=== PATIENT | female | born 1960 | race African-American/Black ===

== ENCOUNTER 2018-03-05 11:36 | Emergency (ER) | payer OTHER ==
[~2018-03-05] VITALS: Ht 160 cm; Wt 95.5 kg
[~2018-03-05 11:36] MED LIST: AMOXICILLIN500 MG PO; CATAPRES0.2 MG PO; CIPROFLOXACN500 MG PO; CYCLOBENZAPR10 MG PO; DOXAZOSIN1 MG PO; HYDROCHLORO25 MG/TAB PO; HYDROXYZ HCL25 MG OR; LASIX 20 MG TAB20 MG PO; LISINOP/HCTZ1 TA1 PO; LORTAB5 PO; MEDDOSEPAK OR; NO MEDS; NORVASC5 MG OR; PRINZIDE1 TA1 OR; QUINAPRIL20 MG PO; ROBITUSSIN AC10 ML PO; SULFACET SOD10 % OS; TRIAMCINOLON0.025 % EX; ULTRAM50 MG OR; ZOFRAN ODT4 MG OR
[2018-03-05] MEDS ORDERED: ASPERCREME LIDOCA41 TOP ×2 (12:13→13:01)
[2018-03-05] MEDS ORDERED: MOTRIN400 MG PO ×2 (12:13→13:01)
[2018-03-05 13:00] VITALS: BP 150/80
== END 2018-03-05 13:00 | disposition home or self-care (01) | DRG 563 ==
LOC: ED 11:36
DX: S46.911A Strain of unspecified muscle, fascia and tendon at shoulder and upper arm level, right arm, initial encounter (principal); M25.511 Pain in right shoulder; M54.42 Lumbago with sciatica, left side; M54.41 Lumbago with sciatica, right side; W01.0XXA Fall on same level from slipping, tripping and stumbling without subsequent striking against object, initial encounter; Y92.009 Unspecified place in unspecified non-institutional (private) residence as the place of occurrence of the external cause

== ENCOUNTER 2018-05-13 20:34 | Observation (INO) | payer OTHER ==
[~2018-05-13] VITALS: Ht 160 cm; Wt 88.5 kg
[~2018-05-13 20:34] MED LIST changes: +ASPERCREME LIDOCA41 TOP; +MOTRIN400 MG PO
--- NOTE | 2018-05-13 20:42 | NUR ---
PT. TO ROOM 6 WITH C/O CP THAT STARTED LAST EVENING. PT. STATES HER CP IS A 10 ON A SCALE OF 1-10. SKIN WARM AND DRY TO TOUCH, COLOR WNL, RESP. EVEN AND UNLABORED.
--- NOTE | 2018-05-13 21:30 | NUR ---
IV PAIN MED GIVEN PER MD ORDER.
--- NOTE | 2018-05-13 21:35 | NUR ---
PO ASA GIVEN PER MD ORDER.
--- NOTE | 2018-05-13 21:36 | NUR ---
SI NITROGLYCERIN AND NITROGLYCERIN OINT. GIVEN PER MD ORDER.
--- NOTE | 2018-05-13 21:50 | NUR ---
PT. STATES HER CP IS NOW DECREASED TO A 2 ON A SCAL OF 1-10.
[2018-05-13 22:03] LABS: HEMATOCRIT 49.9 % (37.0-47.0); IMMATURE GRANULOCYTES 0.4 % (0.0-1.0); MEAN CELL VOLUME 88.5 fL CALC (80.0-100.0); MEAN CORPUSCULAR HGB 29.6 pG CALC (26.0-32.0); MEAN CORPUSCULAR HGB CONC 33.5 g/L CALC (32.0-36.0); NEUT# 7.1 thou/uL (2.00-7.15); RED BLOOD COUNT 5.64 mill/uL (4.20-5.60); RED CELL DISTRI WIDTH 13.8 % (11.5-15.5)
[2018-05-13 22:05] LABS: ALBUMIN 4.2 g/dL (3.2-5.0); ALKALINE PHOSPHATASE 93 u/l (38-126); AMYLASE 84 u/l (30-110); ANION GAP 13 (6-22 (CALC)); BILIRUBIN, TOTAL 0.8 mg/dL (0.0-1.4); BUN 13 mg/dL (7-17); BUN/CREATININE RATIO 14 (12-20 (CALC)); CARBON DIOXIDE 30 mmol/l (22-30); CHLORIDE 99 mmol/l (95-108); CREATININE 0.9 mg/dL (0.5-1.0); GFR > 60 ML/MIN (>=60 (CALC)); GFR FOR AFR.AMER. > 60 ML/MIN (>=60 (CALC)); LIPASE 41 u/l (23-300); POTASSIUM 4.5 mmol/l (3.5-5.1); SGOT/AST 27 u/l (14-36); SGPT/ALT 32 u/l (9-52); TOTAL PROTEIN 8.4 g/dL (6.3-8.2)
[2018-05-13 22:11] LABS: ACT PARTIAL THROMBO TIME 29.1 SECONDS (20.0-32.5); PROTHROMBIN TIME 11.1 SECONDS (9.0-12.5)
[2018-05-13 22:13] LABS: HEMOGLOBIN 16.7 g/dl (12.0-16.0)
[2018-05-13 22:17] LABS: MYOGLOBIN 26 ng/mL (0 - 62)
[2018-05-13 22:19] LABS: SODIUM 137 mmol/l (137-146)
--- NOTE | 2018-05-13 22:47 | NUR ---
PO CATAPRESS GIVEN PER MD ORDER.
--- NOTE | 2018-05-13 23:35 | NUR ---
AMBULATING TO BR GAIT SLOW AND STEADY.
[2018-05-14] VITALS (8 sets, daily range): BP systolic 122–167; BP diastolic 75–96
--- NOTE | 2018-05-14 00:01 | NUR ---
Admission Note Report Given to: PALMER EPPS Transported by: Wheelchair X Stretcher Transported with: X Nurse Transporter X Patent IV O2 X Heavy Equipment Rental Manager
--- NOTE | 2018-05-14 00:10 | NUR ---
PT. TRANSFERED TO DE FLOOR VIA STRETCHER, NO C/O.
[2018-05-14 00:11] LABS: URINE BILIRUBIN - DIPSTICK NEGATIVE (NEGATIVE); URINE BLOOD DIPSTICK SMALL (NEGATIVE); URINE COLOR YELLOW; URINE GLUCOSE - DIPSTICK NEGATIVE (NEGATIVE); URINE KETONE NEGATIVE (NEGATIVE); URINE LEUK ESTERASE TRACE (NEGATIVE); URINE NITRITE - DIPSTICK NEGATIVE (Negative); URINE PH 5.5 (4.5-8.0); URINE PROTEIN - DIPSTICK NEGATIVE (NEG-TRACE); URINE SPECIFIC GRAVITY <=1.005; URINE UROBILINOGEN - DIPSTICK 0.2 E.U./dL (0.2)
[2018-05-14 00:17] LABS: COCAINE POSITIVE (NEGATIVE); METHADONE NEGATIVE (NEGATIVE); TETRAHYDROCANNABIONOL NEGATIVE (NEGATIVE)
[2018-05-14 00:18] LABS: BARBITURATES NEGATIVE (NEGATIVE); OXCYCODONE NEGATIVE (NEGATIVE); TRICYLIC ANTIDEPRESSANTS NEGATIVE (NEGATIVE); URINE CLARITY CLEAR
[2018-05-14 00:22] LABS: URINE SQUAMOUS EPITHELIAL CELL FEW EPI/hpf (0-FEW)
--- NOTE | 2018-05-14 00:25 | NUR ---
PT ARRIVED TO FLOOR WITH ER NURSE. PT AMBULATED TO SCALE, THEN TO BED. VITAL SIGNS OBTAINED BY ALLERGIST IMMUNOLOGIST. PT ORIENTED TO ROOM AND CALL LIGHT SYSTEM. PT DENIES PAIN. RESP EVEN AND UNLABORED. TELE IN PLACE. LUNGS CLEAR BILAT. ABD SOFT, ACTIVE BOWEL SOUNDS. PT REPORTS LAST BM WAS THIS MORNING. PEDAL PULSES PALPATED BILAT. IV LAC PATENT; FLUSHED WITHOUT DIFFICULTY. SAFETY PREACUTIONS REINFORCED. FREQUENT ROUNDS MADE, CALL LIGHT WITHIN REACH.
--- NOTE | 2018-05-14 04:30 | NUR ---
ASSESSMENT UNCHANGED; RESP EVEN AND UNLABORED. TELE IN PLACE. CALL LIGHT WITHIH REACH.
--- NOTE | 2018-05-14 05:56 | NUR ---
SPOKE WITH DR CLAROS ON TELEPHONE FOR ADMISSION ORDERS, NEW ORDERS RECIEVED AT THIS TIME. CONSULT WITH DR CHACON FOR FARM PLANNER. 2 VIEW ECHO THIS AM. CARDIAC DIET. MORPHINE 2MG Q2 PRN PAIN. ASPIRIN 81 MG PO DAILY. QUINAPRIL HCL 20 MG PO DAILY, LIDOCAINE 4% PAD 1 PATCH TOP BID #20 PAD FOR MODERATE PAIN. APPLY O2 2L. RBVO.
--- NOTE | 2018-05-14 06:25 | NUR ---
SPOKE TO DR CLAROS IN REGARDS TO THE CARDIOLOGY CONSULT DR CHACON NOT HAVING PRIVILEGES AT THIS HOSPITAL. ALSO NOTIFIED THAT ECHO WILL NOT BE AVAILABLE UNTIL WEDNESDAY. NO OTHER ORDERS RECIEVED AT THIS TIME.
--- NOTE | 2018-05-14 06:50 | NUR ---
PT UP TO BATHROOM, PT HAD SMALL BM. BROWN IN COLOR. PT ASSISTED BACK TO BEDSIDE CHAIR. RESP EVEN AND UNLABORED WITH O2 IN PLACE. TELE IN PLACE. IV PATENT, CALL LIGHT WITHIN REACH.
--- NOTE | 2018-05-14 07:38 | NUR ---
SHIFT CHANGE REPORT FROM RADHA CHAKRABORTY AWAKE ALERT AND ORIENTED, C/O CHEST PAIN AT @ 9/10 THIS TIME, TELE MONITOR IN PLACE, WILL CONTINUE TO MONITOR AND ADDRESS CONCERNS, CALL TORRES IN REACH.
--- NOTE | 2018-05-14 11:26 | NUR ---
DR CLAROS AND JUAN PABLO HERE, ROUNDED WITH AND DISCUSSED PLAN OF CARE, PT STATED UNDRESTANDING, PAIN CONCERNS ADDRESSED, CALL TORRES IN REACH.
--- NOTE | 2018-05-14 15:44 | NUR ---
RELAXING IN BED, ALL NEEDS MET CALL TORRES IN REACH.
--- NOTE | 2018-05-14 19:30 | NUR ---
PT RESTING IN BED WATCHING TV. RESP EVEN AND UNLABORED WITH O2 IN PLACE. PT DENIES PAIN OR DISCOMFORT. TELE ON. LUNGS CLEAR, DIMINISHED IN BASES. ABD SOFT, ACTIVE BOWEL SOUNDS. PEDAL PULSES PALPATED BILAT. IV LAC PATENT; FLUSHED WITHOUT DIFFICULTY. SAFETY PRECAUTIONS REINFORCED. FREQUENT ROUNDS MADE. CALL LIGHT WITHIN REACH.
[2018-05-15] VITALS (8 sets, daily range): BP systolic 142–186; BP diastolic 79–98
--- NOTE | 2018-05-15 | NUR ---
RESP EVEN AND UNLABORED. PT ASLEEP WITH EYES CLOSED. TELE IN PLACE. NO DISTRESS NOTED. CALL LIGHT WITHIN REACH.
--- NOTE | 2018-05-15 04:05 | NUR ---
ASSESSMENT UNCHANGED; PT WOKE FOR MORNING LAB WORK. RESP EVEN AND UNLABORED. PT DENIES PAIN. TELE IN PLACE. CALL LIGHT WITHIN REACH.
[2018-05-15 05:16] LABS: HEMATOCRIT 44.9 % (37.0-47.0); IMMATURE GRANULOCYTES 0.4 % (0.0-1.0); MEAN CELL VOLUME 90.7 fL CALC (80.0-100.0); MEAN CORPUSCULAR HGB 29.3 pG CALC (26.0-32.0); MEAN CORPUSCULAR HGB CONC 32.3 g/L CALC (32.0-36.0); NEUT# 6.69 thou/uL (2.00-7.15); RED BLOOD COUNT 4.95 mill/uL (4.20-5.60); RED CELL DISTRI WIDTH 13.8 % (11.5-15.5)
[2018-05-15 05:22] LABS: ANION GAP 12 (6-22 (CALC)); BUN 15 mg/dL (7-17); BUN/CREATININE RATIO 20 (12-20 (CALC)); CALCULATED LDLCHOLESTEROL 117 mg/dL (62-129 (CALC)); CARBON DIOXIDE 27 mmol/l (22-30); CHLORIDE 103 mmol/l (95-108); CHOLESTEROL HDL RATIO 3.4 (<4.4 (CALC)); CREATININE 0.7 mg/dL (0.5-1.0); GFR > 60 ML/MIN (>=60 (CALC)); GFR FOR AFR.AMER. > 60 ML/MIN (>=60 (CALC)); HDL CHOLESTEROL 56 mg/dL (>=40); POTASSIUM 4.4 mmol/l (3.5-5.1); SODIUM 138 mmol/l (137-146); TOTAL CHOLESTEROL 188 mg/dl (0-199); TOTAL TRIGLYCERIDES 75 mg/dl (30-149); VLDL CHOLESTROL 15 mg/dl (2-49 (CALC))
[2018-05-15 05:25] LABS: HEMOGLOBIN 14.5 g/dl (12.0-16.0)
--- NOTE | 2018-05-15 07:00 | NUR ---
REPORT RECEIVED BY KAYLA. PT IS SLEEPING WITH NO S/S OF DISTRESS NOTED. CALL LIGHT IN REACH.
--- NOTE | 2018-05-15 07:50 | NUR ---
MEDICATED PT WITH TORADOL FOR PAIN IN HER CHEST SEE EMAR. ASSESSMENT DONE . LUNG SOUND CLEAR/DIMINISHED. O2 AT 2L/MIN VIA NC. #20 LAC THAT APPEARS HEALTHY. SAFETY PRECAUTIONS REINFORCED AND CALL LIGHT IN REACH.
--- NOTE | 2018-05-15 08:15 | NUR ---
PT IS SITTING IN THE SIDE OF THE BED. PT STATED THAT THE PAIN MEDICATION HELPED WITH HER PAIN. PT DENIES ANY OTHER NEEDS AT THIS TIME. CALL LIGHT IN REACH.
--- NOTE | 2018-05-15 12:00 | NUR ---
PT EATING HER LUNCH WITH NO S/S OF DISTRESS NOTED. PT DENIES NEEDS AT THIS TIME CALL LIGHT IN REACH.
--- NOTE | 2018-05-15 16:00 | NUR ---
PT IS RESTING IN BED WITH NO S/S OF DISTRESS NOTED. PT DENIES PAIN . CALL LIGHT IN REACH.
--- NOTE | 2018-05-15 19:20 | NUR ---
REPORT RECIEVED, PT RESTING IN BED WITH EYES CLOSED. RESP EVEN AND UNLABORED. NO DISTRESS NOTED. TELE ON. FREQUENT ROUNDS MADE, CALL LIGHT WITHIN REACH.
--- NOTE | 2018-05-15 20:00 | NUR ---
PT WOKE FOR ASSESSMENT, RESP EVEN AND UNLABORED. TELE IN PLACE. LUNGS CLEAR, DIMINISHED IN BASES. ABD SOFT, ACTIVE BOWEL SOUNDS. PEDAL PULSES PALPATED BILAT. IV LAC PATENT; FLUSHED WITHOUT DIFFICULTY. PT DENIES PAIN AT THIS TIME. CALL LIGHT WITHIN REACH.
--- NOTE | 2018-05-16 00:06 | NUR ---
PT SLEEPING WITH EYES CLOSED. RESP EVEN AND UNLABORED. TELE IN PLACE. NO DISTRESS NOTED. CALL LIGHT WITHIN REACH.
[2018-05-16 00:16] VITALS: BP 167/96
--- NOTE | 2018-05-16 04:15 | NUR ---
ASSESSMENT UNCHANGED; PT RESTING IN BED WATCHING TV. RESP EVEN AND UNLABORED. TELE IN PLACE. CALL LIGHT WITHIN REACH.
[2018-05-16 05:02] VITALS: BP 164/98
--- NOTE | 2018-05-16 07:15 | NUR ---
REPORT RECEIVED FROM MICH CHAKRABORTY;UPON ENTERING THE ROOM PT RESTING IN SUPINE POSITION;INTRODUCED SELF TO PT AND POC DISCUSSED;PT REPORTS CHEST DISCOMFORT AND REQUESTS PAIN MEDICATION;INFORMED PT OF PAIN MEDICATION SCHEDULE AND THAT I WOULD NEED TO VERIFY WHEN LAST DOSE WAS GIVEN PRIOR TO ADMINISTRATION,PT VERBALIZES UNDERSTANDING;VS TO BE OBTAINED;RESPIRATIONS EVEN AND UNLABORED ON OXYGEN @ 2L;TELE MONITOR IN PLACE;ENCOURAGED PT TO CALL FOR ASSISTANCE IF NEEDED;CALL LIGHT IN REACH;WILL CONTINUE TO MONITOR
--- NOTE | 2018-05-16 08:00 | NUR ---
PT RESTING IN SEMI FOWLERS POSITION EATING BREAKFAST;ALERT AND ORIENTED X3;VS OBTAINED AND ASSESSMENT COMPLETED;CURRENT BP 192/104 HR 61,ALL MORNING MEDICATIONS GIVEN;PT COMPLAINS OF LEFT UPPER CHEST/BACK PAIN RATING 10/10 ON THE PAIN SCALE,PT TO BE MEDICATED WITH PRN TORADOL 15MG IVP,WILL MONITOR FOR EFFECTIVENESS;RESPIRATIONS EVEN AND UNLABORED ON RA,PRN O2 @ BEDSIDE;ABDOMEN SOFT ON PALPATION AND ACTIVE IN ALL 4 QUADRANTS;STRONG PEDAL PULSES;#20G TO LAC FLUSHED AND PATENT,SITE APPEARS HEALTHY;TELE MONITOR IN PLACE;SKIN INTACT;PT DENIES ANY CURRENT NEEDS AND IS INSTRUCTED TO CALL FOR ASSISTANCE IF NEEDED;CALL LIGHT IN REACH;WILL CONTINUE TO MONITOR
[2018-05-16 08:03] VITALS: BP 192/104
[2018-05-16 09:35] VITALS: BP 154/88
--- NOTE | 2018-05-16 09:35 | NUR ---
BLOOD PRESSURE RE-CHECK 154/88 HR 55;PT REPORTS PAIN IS DOWN TO A 6 FROM A 10/10 ON THE PAIN SCALE;WILL CONTINUE TO MONITOR
[2018-05-16 11:11] VITALS: BP 169/98
--- NOTE | 2018-05-16 11:26 | NUR ---
PT RESTING IN SEMI ANTUNEZ POSITION;PT DENIES ANY CURRENT PAIN OR NEEDS;RESPIRATIONS REMAIN EVEN AND UNLABORED ON RA;TELE MONITOR IN PLACE;ENCOURAGED TO CALL FOR ASSISTANCE IF NEEDED;CALL LIGHT IN REACH;WILL CONTINUE TO MONITOR
[2018-05-16] MEDS ORDERED: ASPIRIN CHEWABL81 MG PO (13:09)
[2018-05-16] MEDS ORDERED: PEPCID20 MG PO (13:09)
[2018-05-16] MEDS ORDERED: QUINAPRIL20 MG PO (13:09)
[2018-05-16] MEDS ORDERED: IBUPROFEN600 MG PO (13:09)
[2018-05-16] MEDS ORDERED: AMLODIPINE BESYL5 MG PO (13:09)
--- NOTE | 2018-05-16 15:02 | NUR ---
DISCHARGE DISCUSSED WITH PT AND ALL QUESTIONS ANSWERED AT THIS TIME;PRESCRIPTIONS GIVEN;PT DENIES ANY OTHER CURRENT NEEDS;IV SITE REMOVED WITH CATHETER INTACT;PT REFUSES WC FOR DISCHARGE;AWAITING TRANSPORT HOME
--- NOTE | 2018-05-16 15:16 | NUR ---
Discharge instructions given. Patient verbalizes understanding of same. Discharged in stable condition via Ambulatory to Home with family. All belongings sent with pt.
== END 2018-05-16 15:18 | disposition home or self-care (01) | DRG 313 ==
LOC: ED 20:34 → ED-I 23:00 → ED 23:56 → MS2 23:57
PROVIDERS: Emergency Medicine; Nurse Practitioner; ADMIT Internal Medicine; ATTEND Internal Medicine
DX: R07.9 Chest pain, unspecified (principal); F14.10 Cocaine abuse, uncomplicated; I16.0 Hypertensive urgency; I10 Essential (primary) hypertension; F17.210 Nicotine dependence, cigarettes, uncomplicated; R94.31 Abnormal electrocardiogram [ECG] [EKG]; M54.5 Low back pain; M19.90 Unspecified osteoarthritis, unspecified site; F11.90 Opioid use, unspecified, uncomplicated; E66.9 Obesity, unspecified; Z68.34 Body mass index [BMI] 34.0-34.9, adult; Z72.89 Other problems related to lifestyle
CPT/HCPCS: G0378; J1650

== ENCOUNTER 2019-02-15 07:03 | Observation (INO) | payer OTHER ==
[~2019-02-15] VITALS: Ht 160 cm; Wt 92.6 kg
[2019-02-15] VITALS (17 sets, daily range): BP systolic 127–212; BP diastolic 78–113
[~2019-02-15 07:03] MED LIST changes: -ADALAT CC/P30 MG/TA1 PO; -AMLODIPINE10 MG PO; -HYDROCHLOROT12.5 MG PO; -LOPRESSOR 550 MG/TAB PO; -LOSARTAN POT50 MG PO
[2019-02-15 07:45] LABS: HEMATOCRIT 46.1 % (37.0-47.0); HEMOGLOBIN 14.9 g/dl (12.0-16.0); IMMATURE GRANULOCYTES 0.1 % (0.0-5.0); MEAN CELL VOLUME 90.9 fL CALC (80.0-100.0); MEAN CORPUSCULAR HGB 29.4 pG CALC (26.0-32.0); MEAN CORPUSCULAR HGB CONC 32.3 g/L CALC (32.0-36.0); NEUT# 3.04 thou/uL (2.00-7.15); RED BLOOD COUNT 5.07 mill/uL (4.20-5.60); RED CELL DISTRI WIDTH 14.3 % (11.5-15.5)
[2019-02-15 08:05] LABS: ALBUMIN 4.5 g/dL (3.2-5.0); ALKALINE PHOSPHATASE 112 u/l (38-126); ANION GAP 12 (6-22 (CALC)); BILIRUBIN, TOTAL 0.5 mg/dL (0.0-1.4); BUN 29 mg/dL (7-17); BUN/CREATININE RATIO 30 (12-20 (CALC)); CARBON DIOXIDE 32 mmol/l (22-30); CHLORIDE 101 mmol/l (95-108); GFR 57 ML/MIN (>=60 (CALC)); GFR FOR AFR.AMER. > 60 ML/MIN (>=60 (CALC)); LIPASE 76 u/l (23-300); POTASSIUM 4.2 mmol/l (3.5-5.1); SGOT/AST 30 u/l (14-36); SODIUM 140 mmol/l (137-146); TOTAL PROTEIN 8.6 g/dL (6.3-8.2)
[2019-02-15 08:07] LABS: ETHYL ALCOHOL 0 mg/dl (0-30)
[2019-02-15] MEDS ORDERED: LISINOP/HCTZ1 TA1 PO (08:14)
[2019-02-15] MEDS ORDERED: ADALAT CC/P30 MG/TA1 PO (08:15)
[2019-02-16] VITALS (11 sets, daily range): BP systolic 120–199; BP diastolic 63–110
[2019-02-16 05:25] LABS: HEMATOCRIT 45.6 % (37.0-47.0); IMMATURE GRANULOCYTES 0.2 % (0.0-5.0); MEAN CELL VOLUME 88.5 fL CALC (80.0-100.0); MEAN CORPUSCULAR HGB 29.1 pG CALC (26.0-32.0); MEAN CORPUSCULAR HGB CONC 32.9 g/L CALC (32.0-36.0); NEUT# 3.79 thou/uL (2.00-7.15); RED BLOOD COUNT 5.15 mill/uL (4.20-5.60); RED CELL DISTRI WIDTH 14.3 % (11.5-15.5)
[2019-02-16 05:41] LABS: ALBUMIN 4.1 g/dL (3.2-5.0); ALKALINE PHOSPHATASE 86 u/l (38-126); AMYLASE 166 u/l (30-110); ANION GAP 14 (6-22 (CALC)); BILIRUBIN, TOTAL 0.5 mg/dL (0.0-1.4); BUN 22 mg/dL (7-17); BUN/CREATININE RATIO 24 (12-20 (CALC)); CARBON DIOXIDE 26 mmol/l (22-30); CHLORIDE 102 mmol/l (95-108); CREATININE 0.9 mg/dL (0.5-1.0); GFR > 60 ML/MIN (>=60 (CALC)); GFR FOR AFR.AMER. > 60 ML/MIN (>=60 (CALC)); LIPASE 43 u/l (23-300); MAGNESIUM 1.9 mg/dL (1.6-2.3); POTASSIUM 4.2 mmol/l (3.5-5.1); SGOT/AST 18 u/l (14-36); SODIUM 138 mmol/l (137-146); TOTAL PROTEIN 7.5 g/dL (6.3-8.2)
[2019-02-16] MEDS ORDERED: LOPRESSOR 550 MG/TAB PO (10:30)
[2019-02-16] MEDS ORDERED: LOSARTAN POT50 MG PO (10:31)
[2019-02-16] MEDS ORDERED: AMLODIPINE10 MG PO (10:31)
[2019-02-16] MEDS ORDERED: HYDROCHLOROT12.5 MG PO (10:31)
== END 2019-02-16 11:34 | disposition home or self-care (01) ==
LOC: ED 07:03 → ED-I 08:43 → ED 08:55 → ICU 08:56
PROVIDERS: Family Medicine; ADMIT Internal Medicine Nephrology; ATTEND Internal Medicine Nephrology
DX: I16.1 Hypertensive emergency (principal); I10 Essential (primary) hypertension; M19.90 Unspecified osteoarthritis, unspecified site; G62.9 Polyneuropathy, unspecified; E66.9 Obesity, unspecified; F14.10 Cocaine abuse, uncomplicated; F17.200 Nicotine dependence, unspecified, uncomplicated; F10.10 Alcohol abuse, uncomplicated; Z68.36 Body mass index [BMI] 36.0-36.9, adult; Z91.14 Patient's other noncompliance with medication regimen; M54.5 Low back pain; M12.9 Arthropathy, unspecified; F14.90 Cocaine use, unspecified, uncomplicated; Z53.8 Procedure and treatment not carried out for other reasons

== ENCOUNTER → 2019-02-15 | Day surgery (SDC) | payer OTHER ==
[~2019-02-15] VITALS: Ht 165.1 cm; Wt 90.7 kg
[~2019-02-15] MED LIST changes: +ADALAT CC/P30 MG/TA1 PO; +AMLODIPINE BESYL5 MG PO; +AMLODIPINE10 MG PO; +ASPIRIN CHEWABL81 MG PO; +GABAPENTIN400 M2 PO; +HYDROCHLOROT12.5 MG PO; +IBUPROFEN600 MG PO; +LISINOPRIL20 MG PO; +LOPRESSOR 550 MG/TAB PO; +LOSARTAN POT50 MG PO; +MOBIC7.5 M1 PO; +NIFEDIPINE ER30 M1 PO; +OXYBUTYNIN5 MG PO; +PEPCID20 MG PO
[2019-02-15 06:53] LABS: BARBITURATES NEGATIVE (NEGATIVE); COCAINE POSITIVE (NEGATIVE); METHADONE NEGATIVE (NEGATIVE); OXCYCODONE NEGATIVE (NEGATIVE); TETRAHYDROCANNABIONOL NEGATIVE (NEGATIVE); TRICYLIC ANTIDEPRESSANTS NEGATIVE (NEGATIVE)
[2019-02-15 09:03] VITALS: BP 192/101
== END | disposition home or self-care (01) ==
LOC: ORM 05:51
PROVIDERS: ATTEND Anesthesiology Pain Medicine
DX: M54.5 Low back pain (principal); M12.9 Arthropathy, unspecified; I10 Essential (primary) hypertension; F14.90 Cocaine use, unspecified, uncomplicated; Z53.8 Procedure and treatment not carried out for other reasons

== ENCOUNTER 2019-03-13 14:40 | Observation (INO) | payer OTHER ==
[~2019-03-13] VITALS: Ht 160 cm; Wt 92.2 kg
[~2019-03-13 14:40] MED LIST changes: +ADALAT CC/P30 MG/TA1 PO; +AMLODIPINE10 MG PO; +HYDROCHLOROT12.5 MG PO; +LOPRESSOR 550 MG/TAB PO; +LOSARTAN POT50 MG PO
--- NOTE | 2019-03-13 14:48 | NUR ---
EMS TO ER ROOM 9, TO BED
[2019-03-13] MEDS ORDERED: GABAPENTIN100 MG PO (15:15)
--- NOTE | 2019-03-13 15:15 | NUR ---
PATIENT REPORTS GENERAL WEAKNESS WHILE MAKING LUNCH. DENIES ANY LOC. PATIENT DROWSY, RESPONDS TO VERBAL STIMULI. ORIENTED TO X3. MOVES ALL EXTERMITIES WELL. DENIES ANY PAIN. SB 50 ON MONITOR, WILL CONTINUE TO MONITOR.
[2019-03-13] MEDS ORDERED: KLOR-CON M2020 MEQ PO (15:16)
[2019-03-13] MEDS ORDERED: FUROSEMIDE40 MG PO (15:16)
[2019-03-13] MEDS ORDERED: ASPIRIN81 MG PO (15:17)
[2019-03-13] MEDS ORDERED: OXYBUTYNIN5 M1 PO (15:18)
[2019-03-13] MEDS ORDERED: METHOCARBAMOL500 MG PO (15:18)
[2019-03-13 15:38] LABS: HEMATOCRIT 42.2 % (37.0-47.0); HEMOGLOBIN 13.7 g/dl (12.0-16.0); IMMATURE GRANULOCYTES 0.2 % (0.0-5.0); MEAN CORPUSCULAR HGB 28.9 pG CALC (26.0-32.0); MEAN CORPUSCULAR HGB CONC 32.5 g/L CALC (32.0-36.0); NEUT# 3.89 thou/uL (2.00-7.15); RED BLOOD COUNT 4.74 mill/uL (4.20-5.60)
[2019-03-13 15:53] LABS: ALBUMIN 4.2 g/dL (3.2-5.0); ALKALINE PHOSPHATASE 91 u/l (38-126); ANION GAP 16 (6-22 (CALC)); BILIRUBIN, TOTAL 0.4 mg/dL (0.0-1.4); BUN 36 mg/dL (7-17); BUN/CREATININE RATIO 25 (12-20 (CALC)); CARBON DIOXIDE 23 mmol/l (22-30); CHLORIDE 105 mmol/l (95-108); CREATININE 1.4 mg/dL (0.5-1.0); ETHYL ALCOHOL 0 mg/dl (0-30); GFR 39 ML/MIN (>=60 (CALC)); GFR FOR AFR.AMER. 47 ML/MIN (>=60 (CALC)); POTASSIUM 3.4 mmol/l (3.5-5.1); SODIUM 140 mmol/l (137-146); TOTAL PROTEIN 7.6 g/dL (6.3-8.2)
[2019-03-13 16:04] LABS: SGOT/AST 50 u/l (14-36)
--- NOTE | 2019-03-13 16:14 | NUR ---
PATIENT RESTING ON STRETCHER WITH EYES CLOSED. ANSWER TO VERBAL STIMULI. DENIES ANY NEEDS AT THIS TIME. WILL CONTINUE TO MONITOR.
[2019-03-13 16:26] VITALS: BP 112/74
--- NOTE | 2019-03-13 16:26 | NUR ---
OTHO BP COMPLETED, PATIENT DENIES ANY DIZZINESS OR WEAKNESS UPON STANDING. AT BEDSIDE TO DISCUSS RESULTS.
[2019-03-13 16:27] VITALS: BP 117/77; BP 121/77
--- NOTE | 2019-03-13 17:02 | NUR ---
ATTEMPT MADE TO CALL REPORT, SPOKE TO [place]. NURSE NOT AVAILABLE. WILL CALL BACK.
--- NOTE | 2019-03-13 17:13 | NUR ---
REPORT GIVEN TO MICH FULTON.
--- NOTE | 2019-03-13 17:17 | NUR ---
PATIENT TRANSPORTED TO [facility] VIA STRETCHER WITH TELE IN PLACE, MICH FULTON AT BEDSIDE. CARE RELINQUISHED. MEDS,CLOTHING, SHOES AND CELL PHONE TO [facility] WITH PATIENT.
[2019-03-13 17:39] VITALS: BP 127/87
--- NOTE | 2019-03-13 17:53 | NUR ---
PT ARRIVED VIA STRETCHER ACCOMPANIED BY ER STAFF IN STABLE CONDITION; AMBULATE TO DIGITAL SCALE WITH STEADY GAIT; WT & VITALS OBTAINED; WALKED TO BATHROOM WITH ASSIT, VOIDED, PT FLUSHED TOILET, NOT ABLE TO INSPECT URINE; BACK INTO BED, PT FELL ASLEEP IMMEDIATELY BUT EASILY AWAKENS WHEN QUESTIONS ARE ASKED; A/O X3; RESP EVEN AND UNLABORED ON ROOM AIR; TELE IN PLACE; EMS SITE TO LAC, LR INFUSING @ 100CC/HR, SITE APPEARS HEALTHY; 0RIENT TO ROOM AND CALL TORRES SYSTEM; MULTIPLE HOME MEDS WHICH WILL KEPT IN MED ROOM. WILL CONTINUE TO MONITOR.
--- NOTE | 2019-03-13 19:00 | NUR ---
RECEIVED REPORT FROM NURSE FULTON, PATIENT APPEARS TO BE SLEEPING, NO DISCOMFORTS NOTED AT THIS TIME,CALL LIGHT AT REACH
[2019-03-13 19:37] VITALS: BP 133/81
--- NOTE | 2019-03-13 20:00 | NUR ---
PATIENT DROWSY, DENIES PAIN OR DISCOMFORT, WITH AN ONGOING IV OF LR @100CC/HR ON LAC INFUSING WELL, LAST BM 03/13, TELE SHOWS SB55, CALL LIGHT AT REACH.
--- NOTE | 2019-03-14 | NUR ---
PATIENT APPEARS TO BE SLEEPING WITH EYES CLOSED EVEN UNLABORED BREATHING CALL LIGHT AT REACH.
[2019-03-14 03:42] VITALS: BP 138/81
--- NOTE | 2019-03-14 05:00 | NUR ---
PATIENT AWAKE RESTING IN BED, WATCHING TV, DENIES PAIN AND DISCOMFORTS CALL LIGHT AT REACH,
[2019-03-14 05:38] LABS: HEMATOCRIT 42.3 % (37.0-47.0); HEMOGLOBIN 13.6 g/dl (12.0-16.0); IMMATURE GRANULOCYTES 0.2 % (0.0-5.0); MEAN CELL VOLUME 89.6 fL CALC (80.0-100.0); MEAN CORPUSCULAR HGB 28.8 pG CALC (26.0-32.0); MEAN CORPUSCULAR HGB CONC 32.2 g/L CALC (32.0-36.0); NEUT# 3.34 thou/uL (2.00-7.15); RED BLOOD COUNT 4.72 mill/uL (4.20-5.60)
[2019-03-14 06:24] LABS: ALBUMIN 3.6 g/dL (3.2-5.0); ALKALINE PHOSPHATASE 94 u/l (38-126); AMYLASE 71 u/l (30-110); ANION GAP 9 (6-22 (CALC)); BILIRUBIN, TOTAL 0.5 mg/dL (0.0-1.4); BUN 27 mg/dL (7-17); BUN/CREATININE RATIO 28 (12-20 (CALC)); CARBON DIOXIDE 27 mmol/l (22-30); CHLORIDE 109 mmol/l (95-108); GFR 57 ML/MIN (>=60 (CALC)); GFR FOR AFR.AMER. > 60 ML/MIN (>=60 (CALC)); LIPASE 27 u/l (23-300); MAGNESIUM 2.1 mg/dL (1.6-2.3); POTASSIUM 3.9 mmol/l (3.5-5.1); SGOT/AST 21 u/l (14-36); SODIUM 141 mmol/l (137-146); TOTAL PROTEIN 6.6 g/dL (6.3-8.2)
--- NOTE | 2019-03-14 07:00 | NUR ---
SHIFT CHANGE REPORT, PT AWAKE ALERT AND ORIENTED RESTING IN BED, DENIES PAIN AT THIS TIME, IVF INFUSING, TELE MONITOR IN PLACE, NEEDS MET, CALL TORRES IN REACH.
[2019-03-14 08:59] VITALS: BP 139/82
[2019-03-14 11:20] VITALS: BP 147/82
--- NOTE | 2019-03-14 12:04 | NUR ---
RELAXING IN BED HAVING MEAL AT THIS TIME, HAS BEEN AMBULATING TO BR INDEPENDENTLY, ADVISED TO CALL FOR ASSIST NEEDED, ALL NEEDS MET/ADDRESSED.
--- NOTE | 2019-03-14 13:54 | NUR ---
DR BOWDEN ROUNDED AND DISCUSSED PLAN OF CARE, PT STATED UNDERSTANDING
--- NOTE | 2019-03-14 13:58 | NUR ---
JESSICA BECKHAM CALLED REPORTING PT HAD RENAL US THREE WEEKS AGO AND INQUIRED WHETHER DR BOWDEN STILL NEEDED A REPEAT, DR BOWDEN WAS NOTIFIED AND ORDERED TO D/C ORDER.
--- NOTE | 2019-03-14 15:41 | NUR ---
Discharge instructions given. Patient verbalizes understanding of same. Discharged in good condition via Wheelchair to Home with family. All belongings sent with pt.
== END 2019-03-14 15:20 | disposition home or self-care (01) ==
LOC: ED 14:40 → ED-I 16:22 → ED 16:49 → MS2 16:50
PROVIDERS: Emergency Medicine; ADMIT Internal Medicine Nephrology; ATTEND Internal Medicine Nephrology
DX: R55 Syncope and collapse (principal); I10 Essential (primary) hypertension; F19.10 Other psychoactive substance abuse, uncomplicated; G62.9 Polyneuropathy, unspecified; G89.29 Other chronic pain; M54.9 Dorsalgia, unspecified; F17.200 Nicotine dependence, unspecified, uncomplicated; Z72.89 Other problems related to lifestyle; R53.1 Weakness
CPT/HCPCS: G0378; J1650

== ENCOUNTER 2022-02-09 10:32 | Emergency (ER) | payer OTHER ==
[2022-02-09] VITALS (8 sets, daily range): BP systolic 164–214; BP diastolic 95–131
[~2022-02-09] VITALS: Ht 160 cm; Wt 88.0 kg
[~2022-02-09 10:32] MED LIST changes: +ASPIRIN81 MG PO; +FUROSEMIDE40 MG PO; +GABAPENTIN100 MG PO; +KLOR-CON M2020 MEQ PO; +METHOCARBAMOL500 MG PO; +OXYBUTYNIN5 M1 PO
== END 2022-02-09 12:10 | disposition home or self-care (01) ==
LOC: ED 10:32
DX: S93.401A Sprain of unspecified ligament of right ankle, initial encounter (principal); I10 Essential (primary) hypertension; F17.200 Nicotine dependence, unspecified, uncomplicated; W10.9XXA Fall (on) (from) unspecified stairs and steps, initial encounter; Y92.009 Unspecified place in unspecified non-institutional (private) residence as the place of occurrence of the external cause

== ENCOUNTER 2022-11-01 23:02 | Observation (INO) | payer OTHER ==
[~2022-11-01] VITALS: Ht 160 cm; Wt 109.0 kg
[2022-11-01 23:13] VITALS: BP 220/126
[2022-11-01 23:15] VITALS: BP 229/116
[2022-11-01 23:31] VITALS: BP 222/110
[2022-11-01 23:39] LABS: HEMATOCRIT 45.3 % (37.0-47.0); HEMOGLOBIN 14.2 g/dl (12.0-16.0); IMMATURE GRANULOCYTES 0.4 % (0.0-5.0); MEAN CELL VOLUME 91.7 fL CALC (80.0-100.0); MEAN CORPUSCULAR HGB 28.7 pG CALC (26.0-32.0); MEAN CORPUSCULAR HGB CONC 31.3 g/dL CAL (32.0-36.0); NEUT# 4.22 thou/uL (2.00-7.15); RED BLOOD COUNT 4.94 mill/uL (4.20-5.60); RED CELL DISTRI WIDTH 14.2 % (11.5-15.5)
[2022-11-01 23:43] VITALS: BP 236/131
[2022-11-01 23:47] VITALS: BP 234/121
[2022-11-01 23:51] LABS: D-DIMER 0.7 mg/L (0.19-0.60)
[2022-11-01 23:54] VITALS: BP 207/117
[2022-11-01 23:55] LABS: ACT PARTIAL THROMBO TIME 26.4 SECONDS (20.0-32.5); PROTHROMBIN TIME 9.8 SECONDS (9.0-12.5)
[2022-11-01 23:57] LABS: URINE BILIRUBIN - DIPSTICK NEGATIVE (NEGATIVE); URINE BLOOD DIPSTICK NEGATIVE (NEGATIVE); URINE COLOR YELLOW; URINE GLUCOSE - DIPSTICK NEGATIVE (NEGATIVE); URINE KETONE NEGATIVE (NEGATIVE); URINE LEUK ESTERASE NEGATIVE (NEGATIVE); URINE PROTEIN - DIPSTICK NEGATIVE (NEG-TRACE); URINE SPECIFIC GRAVITY 1.015; URINE UROBILINOGEN - DIPSTICK 0.2 E.U./dL (0.2)
[2022-11-02] VITALS (10 sets, daily range): BP systolic 112–211; BP diastolic 68–108
[2022-11-02 00:01] LABS: URINE NITRITE - DIPSTICK NEGATIVE (Negative)
[2022-11-02 00:02] LABS: ALKALINE PHOSPHATASE 127 u/l (38-126); BILIRUBIN, TOTAL 0.4 mg/dL (0.0-1.4); BUN 18 mg/dL (8-23); BUN/CREATININE RATIO 17 (12-20 (CALC)); CHLORIDE 109 mmol/l (95-108); CREATININE 1.1 mg/dL (0.5-1.0); ETHYL ALCOHOL 0 mg/dl (0-30); GFR FOR AFR.AMER. > 60 ML/MIN (>=60 (CALC)); GFR OTHER RACES 50 ML/MIN (>=60 (CALC)); LIPASE 87 u/l (23-300); POTASSIUM 4.1 mmol/l (3.5-5.1); SGOT/AST 23 u/l (9-36); SODIUM 141 mmol/l (137-146); TOTAL PROTEIN 7.6 g/dL (6.3-8.2)
[2022-11-02 00:06] LABS: ANION GAP 10 (6-22 (CALC)); CARBON DIOXIDE 26 mmol/l (22-30)
[2022-11-02 05:46] LABS: CHOLESTEROL HDL RATIO 3.1 (<4.4 (CALC))
[2022-11-02] MEDS ORDERED: POTASSIUM CHLO20 ME1 PO (08:16)
[2022-11-02] MEDS ORDERED: LIPITOR40 M1 PO (08:17)
[2022-11-02] MEDS ORDERED: CARVEDILOL3.125 MG PO (08:18)
[2022-11-02] MEDS ORDERED: GABAPENTIN100 MG PO (08:19)
[2022-11-02] MEDS ORDERED: METOPROL TAR25 MG PO (08:19)
[2022-11-02] MEDS ORDERED: CYCLOBENZAPRINE10 MG PO (08:21)
[2022-11-02] MEDS ORDERED: FUROSEMIDE20 MG PO (08:22)
[2022-11-02] MEDS ORDERED: LOSARTAN POTASS50 MG PO (08:22)
[2022-11-02] MEDS ORDERED: NORVASC5 M1 PO (08:23)
[2022-11-02] MEDS ORDERED: TOPIRAMATE100 MG PO (08:23)
[2022-11-02] MEDS ORDERED: COREG12.5 MG PO (09:10)
== END 2022-11-02 15:16 | disposition home or self-care (01) ==
LOC: ED 23:02 → MS2 11-02 00:47
PROVIDERS: Family Medicine; ADMIT Internal Medicine; ATTEND Internal Medicine
DX: R07.9 Chest pain, unspecified (principal); I10 Essential (primary) hypertension; E66.9 Obesity, unspecified; Z68.41 Body mass index [BMI] 40.0-44.9, adult; F17.210 Nicotine dependence, cigarettes, uncomplicated
CPT/HCPCS: G0378; J1650; S0164

== ENCOUNTER 2023-01-07 04:53 | Observation (INO) | payer OTHER ==
[2023-01-07] VITALS (32 sets, daily range): BP systolic 106–217; BP diastolic 63–122
[~2023-01-07] VITALS: Ht 160 cm; Wt 103.8 kg
[~2023-01-07 04:53] MED LIST changes: +CARVEDILOL3.125 MG PO; +COREG12.5 MG PO; +CYCLOBENZAPRINE10 MG PO; +FUROSEMIDE20 MG PO; +LIPITOR40 M1 PO; +LOSARTAN POTASS50 MG PO; +METOPROL TAR25 MG PO; +NORVASC5 M1 PO; +POTASSIUM CHLO20 ME1 PO; +TOPIRAMATE100 MG PO
[2023-01-07 05:19] LABS: BASO% 0.3 % (0-3); HEMATOCRIT 46.7 % (37.0-47.0); HEMOGLOBIN 14.8 g/dl (12.0-16.0); IMMATURE GRANULOCYTES 0.2 % (0.0-5.0); LYMPH% 26.9 % (15-41); MEAN CELL VOLUME 89.5 fL CALC (80.0-100.0); MEAN CORPUSCULAR HGB 28.4 pG CALC (26.0-32.0); MEAN CORPUSCULAR HGB CONC 31.7 g/dL CAL (32.0-36.0); MONO% 5.3 % (2-13); NEUT# 7.58 thou/uL (2.00-7.15); NEUT% 66.3 % (42-76); RED BLOOD COUNT 5.22 mill/uL (4.20-5.60); RED CELL DISTRI WIDTH 13.7 % (11.5-15.5)
[2023-01-07 05:36] LABS: D-DIMER 1.08 mg/L (0.19-0.60)
[2023-01-07 05:40] LABS: INTERNATIONAL NORMALIZED RATIO 0.9 RATIO (0.7-1.3); PROTHROMBIN TIME 9.3 SECONDS (9.0-12.5)
[2023-01-07 06:02] LABS: ALBUMIN 4.7 g/dL (3.2-5.0); ALKALINE PHOSPHATASE 135 u/l (38-126); ANION GAP 13 (6-22 (CALC)); BILIRUBIN, TOTAL 0.3 mg/dL (0.02-1.3); BUN 22 mg/dL (8-23); BUN/CREATININE RATIO 21 (12-20 (CALC)); CARBON DIOXIDE 28 mmol/l (22-30); CHLORIDE 103 mmol/l (95-108); CREATININE 1.1 mg/dL (0.5-1.0); ETHYL ALCOHOL 0 mg/dl (0-30); GFR FOR AFR.AMER. > 60 ML/MIN (>=60 (CALC)); GFR OTHER RACES 50 ML/MIN (>=60 (CALC)); LIPASE 129 u/l (23-300); POTASSIUM 4.1 mmol/l (3.5-5.1); SGOT/AST 30 u/l (9-36); SODIUM 139 mmol/l (137-146); TOTAL PROTEIN 8.5 g/dL (6.3-8.2)
[2023-01-07 06:13] LABS: URINE BILIRUBIN - DIPSTICK NEGATIVE (NEGATIVE); URINE BLOOD DIPSTICK NEGATIVE (NEGATIVE); URINE COLOR YELLOW; URINE GLUCOSE - DIPSTICK 100 mg/dL (NEGATIVE); URINE KETONE NEGATIVE (NEGATIVE); URINE LEUK ESTERASE NEGATIVE (NEGATIVE); URINE PROTEIN - DIPSTICK NEGATIVE (NEG-TRACE); URINE SPECIFIC GRAVITY 1.015; URINE UROBILINOGEN - DIPSTICK 0.2 E.U./dL (0.2)
[2023-01-07 06:16] LABS: URINE NITRITE - DIPSTICK NEGATIVE (Negative)
[2023-01-07] MEDS ORDERED: ARNUITY EL50 MCG/ACT (13:55)
[2023-01-07] MEDS ORDERED: FUROSEMIDE20 MG PO (13:58)
[2023-01-07] MEDS ORDERED: CARVEDILOL25 MG PO (14:04)
[2023-01-07] MEDS ORDERED: LOPRESSOR 550 MG/TAB PO (14:05)
[2023-01-08 00:10] VITALS: BP 105/63
[2023-01-08 04:31] VITALS: BP 111/62
[2023-01-08 05:34] LABS: ALBUMIN 3.8 g/dL (3.2-5.0); CHOLESTEROL HDL RATIO 3.1 (<4.4 (CALC)); CREATININE 1.2 mg/dL (0.5-1.0); MAGNESIUM 2.2 mg/dL (1.6-2.3); POTASSIUM 3.6 mmol/l (3.5-5.1)
[2023-01-08 05:37] LABS: BILIRUBIN, TOTAL 0.5 mg/dL (0.02-1.3)
[2023-01-08 05:38] LABS: BASO% 0.3 % (0-3); EOS% 2.8 % (0-8); HEMATOCRIT 44.6 % (37.0-47.0); HEMOGLOBIN 14.3 g/dl (12.0-16.0); IMMATURE GRANULOCYTES 0.2 % (0.0-5.0); LYMPH% 42.9 % (15-41); MEAN CELL VOLUME 89.9 fL CALC (80.0-100.0); MEAN CORPUSCULAR HGB 28.8 pG CALC (26.0-32.0); MEAN CORPUSCULAR HGB CONC 32.1 g/dL CAL (32.0-36.0); MONO% 6.7 % (2-13); NEUT# 4.55 thou/uL (2.00-7.15); NEUT% 47.1 % (42-76); RED BLOOD COUNT 4.96 mill/uL (4.20-5.60); RED CELL DISTRI WIDTH 13.9 % (11.5-15.5)
[2023-01-08 06:32] VITALS: BP 110/67
[2023-01-08 10:13] VITALS: BP 104/56
== END 2023-01-08 13:17 | disposition home or self-care (01) ==
LOC: ED 04:53 → ED-I 10:20 → ED 10:48 → MS2 10:49
PROVIDERS: Family Medicine; Nurse Practitioner Family; ADMIT Internal Medicine; ATTEND Internal Medicine
DX: K80.21 Calculus of gallbladder without cholecystitis with obstruction (principal); I10 Essential (primary) hypertension; E78.5 Hyperlipidemia, unspecified; F17.210 Nicotine dependence, cigarettes, uncomplicated; I25.2 Old myocardial infarction; F14.10 Cocaine abuse, uncomplicated
CPT/HCPCS: G0378; J1650; Q9967

== ENCOUNTER 2023-04-01 18:35 | Emergency (ER) | payer OTHER ==
[~2023-04-01] VITALS: Ht 160 cm; Wt 112.7 kg
[~2023-04-01 18:35] MED LIST changes: +ARNUITY EL50 MCG/ACT; +BENADRYL 25MG C25 MG PO; +CARVEDILOL25 MG PO
[2023-04-01 19:01] VITALS: BP 197/104
[2023-04-01 19:27] VITALS: BP 208/124
[2023-04-01 19:31] VITALS: BP 182/99
[2023-04-01 19:46] VITALS: BP 184/99
[2023-04-01] MEDS ORDERED: NAPROXEN500 MG PO (19:48)
[2023-04-01] MEDS ORDERED: METHOCARBAMOL500 MG PO (19:48)
[2023-04-01 20:00] VITALS: BP 184/99
== END 2023-04-01 20:12 | disposition home or self-care (01) | DRG 552 ==
LOC: ED 18:35
DX: S16.1XXA Strain of muscle, fascia and tendon at neck level, initial encounter (principal); I10 Essential (primary) hypertension; F17.200 Nicotine dependence, unspecified, uncomplicated; V49.50XA Passenger injured in collision with unspecified motor vehicles in traffic accident, initial encounter

== ENCOUNTER 2023-04-02 18:21 | Emergency (ER) | payer OTHER ==
[~2023-04-02] VITALS: Ht 160 cm; Wt 108.9 kg
[~2023-04-02 18:21] MED LIST changes: +NAPROXEN500 MG PO
[2023-04-02 18:33] VITALS: BP 196/104
[2023-04-02 18:37] VITALS: BP 169/101
[2023-04-02 19:16] VITALS: BP 185/109
[2023-04-02 19:46] VITALS: BP 184/103
[2023-04-02 20:01] VITALS: BP 179/102
[2023-04-02 20:11] VITALS: BP 179/95
== END 2023-04-02 20:15 | disposition home or self-care (01) | DRG 563 ==
LOC: ED 18:21
DX: S39.012A Strain of muscle, fascia and tendon of lower back, initial encounter (principal); I10 Essential (primary) hypertension; F17.200 Nicotine dependence, unspecified, uncomplicated; V89.2XXA Person injured in unspecified motor-vehicle accident, traffic, initial encounter

== ENCOUNTER 2023-07-09 11:01 | Emergency (ER) | payer OTHER ==
[~2023-07-09] VITALS: Ht 160 cm; Wt 117.0 kg
[2023-07-09] VITALS (8 sets, daily range): BP systolic 129–156; BP diastolic 74–100
[2023-07-09] MEDS ORDERED: MEDDOSEPAK PO (12:54)
== END 2023-07-09 13:21 | disposition home or self-care (01) ==
LOC: ED 11:01
DX: M79.672 Pain in left foot (principal); I10 Essential (primary) hypertension; F17.200 Nicotine dependence, unspecified, uncomplicated

== ENCOUNTER 2023-12-20 20:36 | Observation (INO) | payer OTHER ==
[2023-12-20] VITALS (9 sets, daily range): BP systolic 90–146; BP diastolic 52–93
[~2023-12-20] VITALS: Ht 175.3 cm; Wt 108.0 kg
[~2023-12-20 20:36] MED LIST changes: +MEDDOSEPAK PO
[2023-12-20] MEDS ORDERED: AMLODIPINE BESYL5 MG PO (21:22)
[2023-12-20] MEDS ORDERED: CARVEDILOL12.5 MG PO (21:23)
[2023-12-20] MEDS ORDERED: CYMBALTA30 MG PO (21:24)
[2023-12-20] MEDS ORDERED: BAYER ASPIRIN E81 MG PO (21:25)
[2023-12-20 21:26] LABS: BASO% 0.2 % (0-3); EOS% 2.9 % (0-8); HEMOGLOBIN 11.8 g/dl (12.0-16.0); IMMATURE GRANULOCYTES 0.3 % (0.0-5.0); LYMPH% 42.5 % (15-41); MEAN CELL VOLUME 85.7 fL CALC (80.0-100.0); MEAN CORPUSCULAR HGB 25.9 pG CALC (26.0-32.0); MEAN CORPUSCULAR HGB CONC 30.3 g/dL CAL (32.0-36.0); MONO% 13.2 % (2-13); NEUT# 3.68 thou/uL (2.00-7.15); NEUT% 40.9 % (42-76); RED BLOOD COUNT 4.55 mill/uL (4.20-5.60); RED CELL DISTRI WIDTH 15.9 % (11.5-15.5)
[2023-12-20 21:41] LABS: ALKALINE PHOSPHATASE 104 u/l (38-126); BILIRUBIN, TOTAL 0.6 mg/dL (0.02-1.3); BUN 14 mg/dL (8-23); BUN/CREATININE RATIO 10 (12-20 (CALC)); CHLORIDE 108 mmol/l (95-108); CREATININE 1.4 mg/dL (0.5-1.0); ETHYL ALCOHOL 0 mg/dl (0-30); GFR FOR AFR.AMER. 46 ML/MIN (>=60 (CALC)); GFR OTHER RACES 38 ML/MIN (>=60 (CALC)); LIPASE 30 u/l (23-300); MAGNESIUM 2.3 mg/dL (1.6-2.3); POTASSIUM 4.5 mmol/l (3.5-5.1); SGOT/AST 35 u/l (9-36); SODIUM 138 mmol/l (137-146); TOTAL PROTEIN 7.5 g/dL (6.3-8.2)
[2023-12-20 21:44] LABS: ANION GAP 13 (6-22 (CALC)); CARBON DIOXIDE 22 mmol/l (22-30)
[2023-12-21 00:25] LABS: URINE BLOOD DIPSTICK Trace-intact (NEGATIVE); URINE COLOR Yellow; URINE KETONE Trace mg/dL (NEGATIVE); URINE LEUK ESTERASE Negative (NEGATIVE); URINE NITRITE - DIPSTICK Negative (Negative); URINE PH 5.5 (4.5-8.0); URINE PROTEIN - DIPSTICK 100 mg/dL (NEG-TRACE); URINE SPECIFIC GRAVITY 1.025; URINE UROBILINOGEN - DIPSTICK 0.2 E.U./dL (0.2)
[2023-12-21 00:26] LABS: URINE GLUCOSE - DIPSTICK Negative (NEGATIVE)
[2023-12-21 00:28] LABS: URINE BACTERIA MODERATE hpf; URINE EPITHELIAL CELLS FEW EPI/hpf (0-FEW); URINE HYALINE CAST MODERATE lpf (NONE-RARE)
[2023-12-21 00:29] LABS: URINE COARSE GRANULAR CAST FEW lpf; URINE FINE GRAN CAST FEW lpf
[2023-12-21 02:10] VITALS: BP 126/69
[2023-12-21 03:47] VITALS: BP 109/60
[2023-12-21 06:44] VITALS: BP 120/69
[2023-12-21 10:18] VITALS: BP 104/56
[2023-12-21 12:36] LABS: BASO% 0.1 % (0-3); HEMATOCRIT 40.2 % (37.0-47.0); HEMOGLOBIN 12.2 g/dl (12.0-16.0); IMMATURE GRANULOCYTES 0.4 % (0.0-5.0); MEAN CELL VOLUME 85.4 fL CALC (80.0-100.0); MEAN CORPUSCULAR HGB 25.9 pG CALC (26.0-32.0); MEAN CORPUSCULAR HGB CONC 30.3 g/dL CAL (32.0-36.0); MONO% 0.8 % (2-13); NEUT# 9.75 thou/uL (2.00-7.15); NEUT% 81.7 % (42-76); RED BLOOD COUNT 4.71 mill/uL (4.20-5.60); RED CELL DISTRI WIDTH 15.6 % (11.5-15.5)
[2023-12-21 13:14] LABS: ALBUMIN 4.3 g/dL (3.2-5.0); BILIRUBIN, TOTAL 0.4 mg/dL (0.02-1.3); CREATININE 1.2 mg/dL (0.5-1.0); POTASSIUM 4.8 mmol/l (3.5-5.1); TOTAL PROTEIN 7.6 g/dL (6.3-8.2)
[2023-12-21 15:48] VITALS: BP 122/60
[2023-12-21 19:05] VITALS: BP 131/68
[2023-12-22 00:10] VITALS: BP 141/75
[2023-12-22 04:32] VITALS: BP 131/66
[2023-12-22 05:57] LABS: HEMATOCRIT 37.1 % (37.0-47.0); HEMOGLOBIN 11.5 g/dl (12.0-16.0); IMMATURE GRANULOCYTES 0.3 % (0.0-5.0); MEAN CELL VOLUME 84.5 fL CALC (80.0-100.0); MEAN CORPUSCULAR HGB 26.2 pG CALC (26.0-32.0); NEUT# 19.59 thou/uL (2.00-7.15); NEUT% 88.7 % (42-76); RED BLOOD COUNT 4.39 mill/uL (4.20-5.60); RED CELL DISTRI WIDTH 15.8 % (11.5-15.5)
[2023-12-22 06:27] LABS: ALBUMIN 4.2 g/dL (3.2-5.0); ALKALINE PHOSPHATASE 101 u/l (38-126); ANION GAP 15 (6-22 (CALC)); BILIRUBIN, TOTAL 0.3 mg/dL (0.02-1.3); BUN 22 mg/dL (8-23); BUN/CREATININE RATIO 20 (12-20 (CALC)); CARBON DIOXIDE 22 mmol/l (22-30); CHLORIDE 108 mmol/l (95-108); CREATININE 1.1 mg/dL (0.5-1.0); GFR FOR AFR.AMER. > 60 ML/MIN (>=60 (CALC)); GFR OTHER RACES 50 ML/MIN (>=60 (CALC)); MAGNESIUM 2.3 mg/dL (1.6-2.3); POTASSIUM 4.8 mmol/l (3.5-5.1); SGOT/AST 26 u/l (9-36); SODIUM 140 mmol/l (137-146); TOTAL PROTEIN 7.5 g/dL (6.3-8.2)
[2023-12-22 07:09] VITALS: BP 157/82
[2023-12-22 10:41] VITALS: BP 147/60
[2023-12-22] MEDS ORDERED: PREDNISONE50 MG PO (13:48)
[2023-12-22] MEDS ORDERED: ZITHROMAX250 MG PO (13:49)
== END 2023-12-22 14:12 | disposition home or self-care (01) ==
LOC: ED 20:36 → MS2 12-21 00:42
PROVIDERS: Family Medicine; Student in an Organized Health Care Education/Training Program; ADMIT Internal Medicine; ATTEND Internal Medicine
DX: J44.1 Chronic obstructive pulmonary disease with (acute) exacerbation (principal); N17.9 Acute kidney failure, unspecified; R00.1 Bradycardia, unspecified; I10 Essential (primary) hypertension; I25.10 Atherosclerotic heart disease of native coronary artery without angina pectoris; E66.01 Morbid (severe) obesity due to excess calories; F14.90 Cocaine use, unspecified, uncomplicated; F17.200 Nicotine dependence, unspecified, uncomplicated; Z68.35 Body mass index [BMI] 35.0-35.9, adult; Z99.81 Dependence on supplemental oxygen; Z20.822 Contact with and (suspected) exposure to COVID-19
CPT/HCPCS: G0378; S0164

== ENCOUNTER 2024-05-18 11:17 | Emergency (ER) | payer OTHER ==
[~2024-05-18] VITALS: Ht 165.1 cm; Wt 99.7 kg
[~2024-05-18 11:17] MED LIST changes: +ALLEGRA ALLERGY PO; +BAYER ASPIRIN E81 MG PO; +CARVEDILOL12.5 MG PO; +CLONIDINE0.1 MG PO; +CYMBALTA30 MG PO; +DULOXETINE HCL30 MG PO; +FLONASE AL50 MCG/ACT; +FUROSEMIDE PO; +IPRATROPIU0.5 MG/3 M IN; +KETOCONAZOLE2 % EX; +PREDNISONE50 MG PO; +XARELTO PO; +ZITHROMAX250 MG PO
[2024-05-18 12:27] LABS: BASO% 0.5 % (0-3); HEMATOCRIT 45.2 % (37.0-47.0); HEMOGLOBIN 14.3 g/dl (12.0-16.0); IMMATURE GRANULOCYTES 0.2 % (0.0-5.0); MEAN CELL VOLUME 86.4 fL CALC (80.0-100.0); MEAN CORPUSCULAR HGB 27.3 pG CALC (26.0-32.0); MEAN CORPUSCULAR HGB CONC 31.6 g/dL CAL (32.0-36.0); MONO% 18.2 % (2-13); NEUT# 2.21 thou/uL (2.00-7.15); NEUT% 36.1 % (42-76); RED BLOOD COUNT 5.23 mill/uL (4.20-5.60); RED CELL DISTRI WIDTH 16.3 % (11.5-15.5)
[2024-05-18 12:38] LABS: ALBUMIN 4.3 g/dL (3.2-5.0); ALKALINE PHOSPHATASE 90 u/l (38-126); ANION GAP 8 (6-22 (CALC)); BUN 17 mg/dL (8-23); BUN/CREATININE RATIO 17 (12-20 (CALC)); CARBON DIOXIDE 26 mmol/l (22-30); CHLORIDE 107 mmol/l (95-108); ESTIMATED GFR 63 ML/MIN (>=90 (CALC)); POTASSIUM 4.5 mmol/l (3.5-5.1); SODIUM 138 mmol/l (137-146); TOTAL PROTEIN 8.6 g/dL (6.3-8.2)
[2024-05-18 12:39] LABS: BILIRUBIN, TOTAL 0.8 mg/dL (0.02-1.3); SGOT/AST 46 u/l (9-36)
[2024-05-18] MEDS ORDERED: ZPAK PO (13:48)
[2024-05-18 13:56] VITALS: BP 122/87
== END 2024-05-18 14:07 | disposition home or self-care (01) ==
LOC: ED 11:17
PROVIDERS: Family Medicine
DX: J06.9 Acute upper respiratory infection, unspecified (principal); I11.0 Hypertensive heart disease with heart failure; I50.9 Heart failure, unspecified; I25.10 Atherosclerotic heart disease of native coronary artery without angina pectoris; F17.200 Nicotine dependence, unspecified, uncomplicated; Z20.822 Contact with and (suspected) exposure to COVID-19; Z95.1 Presence of aortocoronary bypass graft

== ENCOUNTER 2024-07-29 03:56 | Emergency (ER) | payer OTHER ==
[~2024-07-29] VITALS: Ht 165.1 cm; Wt 104.0 kg
[2024-07-29] VITALS (8 sets, daily range): BP systolic 120–195; BP diastolic 78–118
[~2024-07-29 03:56] MED LIST changes: +ZPAK PO
[2024-07-29] MEDS ORDERED: oxyCODONE 5MG/ ACETAMINOPHEN 325MG TAB PO ONE (04:20)
[2024-07-29] MEDS ORDERED: KETOROLAC TROMETHAMINE 30 MG/ML SDV IM ONE (04:20)
[2024-07-29] MEDS ORDERED: LORTAB 5/3255 MG PO (05:41)
== END 2024-07-29 06:00 | disposition home or self-care (01) ==
LOC: ED 03:56
DX: G89.18 Other acute postprocedural pain (principal); R07.89 Other chest pain; I10 Essential (primary) hypertension; I25.10 Atherosclerotic heart disease of native coronary artery without angina pectoris; E78.00 Pure hypercholesterolemia, unspecified; Z95.1 Presence of aortocoronary bypass graft

== ENCOUNTER 2024-08-08 14:51 | Emergency (ER) | payer OTHER ==
[~2024-08-08] VITALS: Ht 165.1 cm; Wt 91.0 kg
[~2024-08-08 14:51] MED LIST changes: +LORTAB 5/3255 MG PO
[2024-08-08 15:00] VITALS: BP 138/79
[2024-08-08 15:16] VITALS: BP 127/109
[2024-08-08 15:31] VITALS: BP 119/74
[2024-08-08 15:55] VITALS: BP 123/80
== END 2024-08-08 16:00 | disposition home or self-care (01) ==
LOC: ED 14:51
DX: Z09 Encounter for follow-up examination after completed treatment for conditions other than malignant neoplasm (principal); I10 Essential (primary) hypertension; I25.10 Atherosclerotic heart disease of native coronary artery without angina pectoris; E78.00 Pure hypercholesterolemia, unspecified; F14.10 Cocaine abuse, uncomplicated; Z86.16 Personal history of COVID-19

== ENCOUNTER 2024-12-11 18:36 | Observation (INO) | payer OTHER ==
[~2024-12-11] VITALS: Ht 165.1 cm; Wt 108.8 kg
[2024-12-11] MEDS ORDERED: SODIUM CHLORIDE 0.9% 1,000 ML IV STA (21:19)
[2024-12-11] MEDS ORDERED: PROMETHAZINE HCL 25 MG/ML AMP IV STA ×2 (21:19→23:49)
[2024-12-11] MEDS ORDERED: Pantoprazole Sodium 40 MG VIAL (Protonix) IV STA (21:19)
[2024-12-11] MEDS ORDERED: KETOROLAC TROMETHAMINE 30 MG/ML SDV IV ONE (21:20)
[2024-12-11 22:00] LABS: BASO% 0.2 % (0-3); EOS% 0.2 % (0-8); HEMATOCRIT 48.3 % (37.0-47.0); HEMOGLOBIN 14.7 g/dl (12.0-16.0); IMMATURE GRANULOCYTES 0.3 % (0.0-5.0); LYMPH% 13.5 % (15-41); MEAN CELL VOLUME 91.7 fL CALC (80.0-100.0); MEAN CORPUSCULAR HGB 27.9 pG CALC (26.0-32.0); MEAN CORPUSCULAR HGB CONC 30.4 g/dL CAL (32.0-36.0); MONO% 4.1 % (2-13); NEUT# 10.45 thou/uL (2.00-7.15); NEUT% 81.7 % (42-76); RED BLOOD COUNT 5.27 mill/uL (4.20-5.60); RED CELL DISTRI WIDTH 14.6 % (11.5-15.5)
[2024-12-11 22:01] VITALS: BP 182/97
[2024-12-11 22:01] LABS: URINE BILIRUBIN - DIPSTICK Negative (NEGATIVE); URINE BLOOD DIPSTICK Negative (NEGATIVE); URINE COLOR Yellow; URINE GLUCOSE - DIPSTICK Negative (NEGATIVE); URINE KETONE Negative (NEGATIVE); URINE LEUK ESTERASE Negative (NEGATIVE); URINE NITRITE - DIPSTICK Negative (Negative); URINE PH 8.5 (4.5-8.0); URINE PROTEIN - DIPSTICK 30 mg/dL (NEG-TRACE); URINE UROBILINOGEN - DIPSTICK 0.2 E.U./dL (0.2)
[2024-12-11 22:03] LABS: URINE AMORPH SEDIMENT MANY hpf (NONE-FEW); URINE SQUAMOUS EPITHELIAL CELL FEW EPI/hpf (0-FEW)
[2024-12-11 22:18] LABS: ALBUMIN 4.8 g/dL (3.2-5.0); ALKALINE PHOSPHATASE 142 u/l (38-126); ANION GAP 15 (6-22 (CALC)); BILIRUBIN, TOTAL 0.7 mg/dL (0.02-1.3); BUN 13 mg/dL (8-23); BUN/CREATININE RATIO 18 (12-20 (CALC)); CARBON DIOXIDE 27 mmol/l (22-30); CHLORIDE 100 mmol/l (95-108); CREATININE 0.7 mg/dL (0.5-1.0); ESTIMATED GFR 97 ML/MIN (>=90 (CALC)); LIPASE 39 u/l (23-300); POTASSIUM 3.6 mmol/l (3.5-5.1); SGOT/AST 31 u/l (9-36); SODIUM 138 mmol/l (137-146); TOTAL PROTEIN 8.8 g/dL (6.3-8.2)
[2024-12-11 22:31] VITALS: BP 172/93
[2024-12-11 23:01] VITALS: BP 171/85
[2024-12-11 23:31] VITALS: BP 186/82
[2024-12-11] MEDS ORDERED: MORPHINE SULFATE 4 MG/ML VIAL IV STA (23:48)
[2024-12-11] MEDS ORDERED: DICYCLOMINE HCL 20 MG/2 ML VIAL IM ONE (23:50)
[2024-12-12] VITALS (14 sets, daily range): BP systolic 113–172; BP diastolic 67–107
[2024-12-12] MEDS ORDERED: HYDROmorphone HCL 2 MG/AMP IV STA (02:41)
[2024-12-12] MEDS ORDERED: PIPERACILLIN Sodium-Tazobactam 3.375 GM in SODIUM CHLORIDE 0.9% 100 ML IV ONE (02:45)
[2024-12-12] MEDS ORDERED: PROCHLORPERAZINE EDISYLATE 10 MG/2 ML SDV IV ONE (02:45)
[2024-12-12] MEDS ORDERED: Polyethylene Glycol 3350 17 GM/PKT PO PRN (02:50)
[2024-12-12] MEDS ORDERED: SODIUM CHLORIDE 0.9% 1,000 ML IV PRN (02:50)
[2024-12-12] MEDS ORDERED: PROMETHAZINE HCL 25 MG/ML AMP IV PRN (02:50)
[2024-12-12] MEDS ORDERED: IBUPROFEN 800 MG/TAB PO PRN (02:50)
[2024-12-12] MEDS ORDERED: HYDROmorphone HCL 2 MG/AMP IV PRN (02:50)
[2024-12-12] MEDS ORDERED: ALUM & MAG HYDROX-SIMETHICONE 30 ML PO PRN (02:50)
[2024-12-12] MEDS ORDERED: ONDANSETRON 4 MG/TAB ODT PO PRN (02:50)
[2024-12-12] MEDS ORDERED: ONDANSETRON HCl 4 MG/2 ML SDV IV PRN ×2 (02:50→12:25)
[2024-12-12] MEDS ORDERED: FAMOTIDINE 10MG/ML 2ML SDV IV PRN (02:50)
[2024-12-12] MEDS ORDERED: PIPERACILLIN Sodium-Tazobactam 3.375 GM in SODIUM CHLORIDE 0.9% 100 ML IV SCH (07:30)
[2024-12-12] MEDS ORDERED: ALBUTEROL SULFATE 2.5 MG VIAL IN SCH (10:00)
[2024-12-12] MEDS ORDERED: FAMOTIDINE 10MG/ML 2ML SDV IV ONE (10:39)
[2024-12-12] MEDS ORDERED: SODIUM CHLORIDE 1,000 ML BTL IR ONE (10:49)
[2024-12-12] MEDS ORDERED: LIDOcaine HCl 1% (Local Anesth.) 20 ML VIAL ONE (10:49)
[2024-12-12] MEDS ORDERED: STERILE WATER FOR IRRIGATION 1,000 ML BTL IR ONE (10:49)
[2024-12-12] MEDS ORDERED: ISOVUE-300 (Iopamidol) 100 ML SDV IV ONE (10:55)
[2024-12-12] MEDS ORDERED: SODIUM CHLORIDE 0.9% 100 ML IV ONE (11:35)
[2024-12-12] MEDS ORDERED: ONDANSETRON HCl 4 MG/2 ML SDV IV ONE (11:44)
[2024-12-12] MEDS ORDERED: PHENYLEPHRINE HCL 10 MG/ML VIAL IV ONE (11:44)
[2024-12-12] MEDS ORDERED: ROCURONIUM BROMIDE 10 MG/ML 5ML VIAL IV ONE (11:44)
[2024-12-12] MEDS ORDERED: MIDAZOLAM HCL 2 MG/2 ML VIAL IV ONE (11:44)
[2024-12-12] MEDS ORDERED: LIDOCAINE HCL 2% 2ML SDV IV ONE (11:44)
[2024-12-12] MEDS ORDERED: SUCCINYLCHOLINE CHLORIDE 20 MG/ML 10ML VIAL IV ONE (11:44)
[2024-12-12] MEDS ORDERED: SUGAMMADEX SODIUM 200 MG/2 ML SDV IV ONE (11:44)
[2024-12-12] MEDS ORDERED: PROPOFOL 200 MG/20 ML VIAL IV ONE (11:44)
[2024-12-12] MEDS ORDERED: oxyCODONE 5MG/ ACETAMINOPHEN 325MG TAB PO PRN (12:25)
[2024-12-12] MEDS ORDERED: ACETAMINOPHEN 100 ML IV ONE (12:48)
[2024-12-12] MEDS ORDERED: LASIX20 MG PO (12:54)
[2024-12-12] MEDS ORDERED: METOPROLOL SUCC50 MG PO (12:55)
[2024-12-12] MEDS ORDERED: LABETALOL HCL 100 MG/TAB PO SCH (13:00)
[2024-12-12] MEDS ORDERED: GABAPENTIN 300 MG/CAP PO SCH (15:00)
[2024-12-12] MEDS ORDERED: IPRATROPIUM-Albuterol 0.5MG-2.5MG/3 ML IN SCH (15:00)
[2024-12-12] MEDS ORDERED: cloNIDine HCL 0.1 MG/TAB PO SCH (21:00)
[2024-12-13 04:35] VITALS: BP 141/75
[2024-12-13 06:02] LABS: BILIRUBIN, TOTAL 0.9 mg/dL (0.02-1.3); CREATININE 0.9 mg/dL (0.5-1.0); POTASSIUM 3.6 mmol/l (3.5-5.1)
[2024-12-13 06:04] LABS: BASO% 0.2 % (0-3); EOS% 0.9 % (0-8); HEMOGLOBIN 12.9 g/dl (12.0-16.0); IMMATURE GRANULOCYTES 0.2 % (0.0-5.0); LYMPH% 30.1 % (15-41); MEAN CELL VOLUME 91.5 fL CALC (80.0-100.0); MEAN CORPUSCULAR HGB CONC 31.7 g/dL CAL (32.0-36.0); MONO% 8.4 % (2-13); NEUT# 6.13 thou/uL (2.00-7.15); NEUT% 60.2 % (42-76); RED BLOOD COUNT 4.45 mill/uL (4.20-5.60); RED CELL DISTRI WIDTH 15.1 % (11.5-15.5)
[2024-12-13 06:10] LABS: HEMATOCRIT 40.7 % (37.0-47.0)
[2024-12-13 06:25] LABS: ALBUMIN 3.2 g/dL (3.2-5.0); TOTAL PROTEIN 6.3 g/dL (6.3-8.2)
[2024-12-13 06:37] VITALS: BP 113/64
[2024-12-13] MEDS ORDERED: amLODIPine BESYLATE 5 MG/TAB PO SCH ×2 (09:00)
[2024-12-13] MEDS ORDERED: POTASSIUM CHLORIDE 20 MEQ/TAB PO SCH (09:00)
[2024-12-13] MEDS ORDERED: LOSARTAN Potassium 50 MG/TAB PO SCH (09:00)
[2024-12-13 15:25] VITALS: BP 123/77
[2024-12-13 18:32] VITALS: BP 151/78
[2024-12-13 18:59] VITALS: BP 151/78
[2024-12-14 04:55] VITALS: BP 164/77
[2024-12-14 06:17] VITALS: BP 164/77
[2024-12-14 06:45] VITALS: BP 178/97
[2024-12-14] MEDS ORDERED: LORTAB5 PO (10:10)
[2024-12-14 12:18] VITALS: BP 161/81
== END 2024-12-14 13:05 | disposition home or self-care (01) ==
LOC: ED 18:36 → ED-I 12-12 02:20 → ED 12-12 02:49 → ED-I 12-12 02:50 → MS2 12-12 02:50
PROVIDERS: Family Medicine; ADMIT Surgery; ATTEND Surgery
DX: K80.00 Calculus of gallbladder with acute cholecystitis without obstruction (principal); K82.1 Hydrops of gallbladder; I10 Essential (primary) hypertension; J44.9 Chronic obstructive pulmonary disease, unspecified; I25.10 Atherosclerotic heart disease of native coronary artery without angina pectoris; E78.5 Hyperlipidemia, unspecified; E66.9 Obesity, unspecified; F17.200 Nicotine dependence, unspecified, uncomplicated; T81.31XA Disruption of external operation (surgical) wound, not elsewhere classified, initial encounter; X58.XXXA Exposure to other specified factors, initial encounter
CPT/HCPCS: J0131; J0500; J0780; J1171; J2405; J2470; J2543; J2550; Q9966; Q9967

== ENCOUNTER 2024-12-16 11:16 | Emergency (ER) | payer OTHER ==
[~2024-12-16] VITALS: Ht 165.1 cm; Wt 118.0 kg
[~2024-12-16 11:16] MED LIST changes: +LASIX20 MG PO; +METOPROLOL SUCC50 MG PO
[2024-12-16 11:30] VITALS: BP 158/94
[2024-12-16 11:45] VITALS: BP 155/91
[2024-12-16 12:01] VITALS: BP 138/80
[2024-12-16 12:10] VITALS: BP 138/80
[2024-12-16 12:15] VITALS: BP 155/91
== END 2024-12-16 12:26 | disposition home or self-care (01) ==
LOC: ED 11:16
DX: T81.31XA Disruption of external operation (surgical) wound, not elsewhere classified, initial encounter (principal); Y83.6 Removal of other organ (partial) (total) as the cause of abnormal reaction of the patient, or of later complication, without mention of misadventure at the time of the procedure; I10 Essential (primary) hypertension; I25.10 Atherosclerotic heart disease of native coronary artery without angina pectoris; E78.00 Pure hypercholesterolemia, unspecified; F17.200 Nicotine dependence, unspecified, uncomplicated

== ENCOUNTER 2025-01-30 06:51 | Day surgery (SDC) | payer OTHER ==
[~2025-01-30] VITALS: Ht 165.1 cm; Wt 110.2 kg
[~2025-01-30 06:51] MED LIST changes: +CARVEDILOL6.25 MG PO
[2025-01-30] MEDS ORDERED: LACTATED RINGER'S 1,000 ML IV ONE (06:56)
[2025-01-30 08:50] VITALS: BP 151/96
[2025-01-30] MEDS ORDERED: PROPOFOL 200 MG/20 ML VIAL IV ONE (09:26)
[2025-01-30] MEDS ORDERED: LIDOCAINE HCL 2% 2ML SDV IV ONE (09:26)
[2025-01-30] MEDS ORDERED: GLYCOPYRROLATE 0.2 MG/ML IV ONE (09:26)
== END 2025-01-30 09:03 | disposition home or self-care (01) ==
LOC: ENDO 06:51
PROVIDERS: ATTEND Surgery
DX: Z12.11 Encounter for screening for malignant neoplasm of colon (principal); D12.5 Benign neoplasm of sigmoid colon; K64.8 Other hemorrhoids; I13.0 Hypertensive heart and chronic kidney disease with heart failure and stage 1 through stage 4 chronic kidney disease, or unspecified chronic kidney disease; I50.9 Heart failure, unspecified; N18.9 Chronic kidney disease, unspecified; I25.10 Atherosclerotic heart disease of native coronary artery without angina pectoris; E78.00 Pure hypercholesterolemia, unspecified; E66.9 Obesity, unspecified; Z95.1 Presence of aortocoronary bypass graft
CPT/HCPCS: J1596